=== PATIENT | male | born 1970 | race Caucasian/White ===

== ENCOUNTER 2017-11-03 20:47 | Emergency (ER) | payer OTHER, MEDICAID ==
[~2017-11-03] VITALS: Ht 170.2 cm; Wt 102.1 kg
[~2017-11-03 20:47] MED LIST: ACETAMINOPHEN-1 EAC1 PO; AMOXICILLIN 50500 MG PO; CEPHALEXIN 500500 M3 PO; CIPRO HC OTIC S10 ML OTIC; CIPROFLOXACIN500 M1 PO; COLLAGEN; COMPAZINE10 MG PO; CORTISPORIN OTI10 M2 OT; FLEXERIL PO; HYDROCODON-ACE1 EAC7 PO; HYDROCODONE-AP1 EAC6 PO; HYDROCODONE-APA1 TA1 PO; IBUPROFEN 200200 M1 PO; IBUPROFEN 800800 M1 PO; NOHOMEMEDICATIONS; NORCO 5-325 TA1 EACH PO; ONDANSETRON HCL4 M2 PO; PHENERGAN 25 MG25 M1 PO; SKELAXIN 800 M800 M1 PO; TUMERIC; VICODIN 5-5001 EACH PO
[2017-11-03 21:07] LABS: URINE BILIRUBIN NEGATIVE (Negative); URINE BLOOD NEGATIVE (Negative); URINE CLARITY CLEAR; URINE COLOR YELLOW; URINE GLUCOSE-RANDOM 3+ (Negative); URINE KETONES NEGATIVE (Negative); URINE LEUKOCYTES-REFLEX NEGATIVE (Negative); URINE NITRITE-REFLEX NEGATIVE (Negative); URINE PROTEIN NEGATIVE (Negative); URINE SPECIFIC GRAVITY >= 1.030 (1.005-1.030); URINE UROBILINOGEN 0.2 E.U./dl (0.2-1.0)
[2017-11-03] MEDS ORDERED: BACTROBAN CREAM30 G1 TOP (21:43)
[2017-11-03 22:02] VITALS: BP 132/86
== END 2017-11-03 22:02 | disposition home or self-care (01) ==
LOC: M.ERS 20:47
PROVIDERS: Nurse Practitioner Family
DX: N48.89 Other specified disorders of penis (principal); F41.9 Anxiety disorder, unspecified; Z90.89 Acquired absence of other organs

== ENCOUNTER 2018-01-07 11:51 | Emergency (ER) | payer OTHER, MEDICAID ==
[~2018-01-07] VITALS: Ht 170.2 cm; Wt 99.8 kg
[~2018-01-07 11:51] MED LIST changes: +BACTROBAN CREAM30 G1 TOP
[2018-01-07 12:30] LABS: ABSOLUTE BASOPHILS 0.1 thou/uL (0.0-0.2); ABSOLUTE LYMPHOCYTES 1.8 thou/uL (0.8-5.3); ABSOLUTE MONOCYTES 1.1 thou/uL (0.0-1.2); BASOPHILS 0.9 %; EOSINOPHILS 0.5 %; HEMATOCRIT 46.7 % (42.0-52.0); LYMPHOCYTES 22.6 %; MCH 29.8 pg (26.0-34.0); MCHC 34.2 g/dL (28.0-37.0); MONOCYTES 13.8 %; MPV 8.9 fl. (7.2-11.1); NUCLEATED RBCS 0 /100WBC; PLATELET COUNT* 203 thou/uL (150-400); POLYS 62.2 %; RBC 5.36 mil/uL (4.50-6.00); RDW-CV 13.1 % (10.5-14.5)
[2018-01-07 12:43] LABS: CALCIUM 8.8 mg/dL (8.5-10.1); CREATININE 1.1 mg/dL (0.6-1.3); POTASSIUM 3.7 mmol/L (3.5-5.1)
[2018-01-07] MEDS ORDERED: KEFLEX500 M1 PO (12:53)
[2018-01-07] MEDS ORDERED: PREDNISONE 5 MG5 MG PO (12:53)
[2018-01-07] MEDS ORDERED: IBUPROFEN 800800 M1 PO (12:53)
[2018-01-07] MEDS ORDERED: PROAIR HFA8.5 GM INH (12:53)
[2018-01-07 12:56] LABS: ALBUMIN 4.1 g/dL (3.4-5.0); TOTAL BILIRUBIN 0.7 mg/dL (<0.1-1.0); TOTAL PROTEIN 7.7 g/dL (6.4-8.2)
[2018-01-07 13:04] VITALS: BP 139/92
== END 2018-01-07 13:07 | disposition home or self-care (01) ==
LOC: M.ERS 11:51
PROVIDERS: Physician Assistant
DX: J20.9 Acute bronchitis, unspecified (principal); J02.9 Acute pharyngitis, unspecified; F41.9 Anxiety disorder, unspecified; Z90.89 Acquired absence of other organs